=== PATIENT | male | born 1995 | race Caucasian/White ===

== ENCOUNTER 2019-09-02 07:45 | Outpatient (CLI) | payer BC ==
[2019-09-02 10:37] LABS: #Eosinphils 0.1 thou/uL (0.0-0.7); #Lymphocytes 1.7 thou/uL (1.20-3.40); #Monocytes 0.6 thou/uL (0.11-0.59); #Neutrophils 1.9 thou/uL (1.40-6.50); %Basophils 0.7 % (0.0-1.0); %Eosinophils 1.8 % (0.0-10.0); %Lymphocytes 39.7 % (21.0-51.0); %Monocytes 12.8 % (0.0-10.0); %Neutrophils 45.1 % (42.0-75.0); Hemoglobin 14.5 g/dL (14.0-18.0); Mean Corpuscular HGB CONC 33.6 g/dL (32.0-36.0); Mean Corpuscular Hemoglobin 29.6 pg (27.0-31.0); Mean Corpuscular Volume 88.2 fL (78.0-98.0); Mean Platelet Volume 8.5 fL (7.4-10.4); Platelet Count 200 thou/uL (130-400); RBC Distribution Width 11.8 % (11.5-14.5); Red Blood Cell (RBC) Count 4.91 mill/uL (4.70-6.10); White Blood Cell (WBC) Count 4.3 thou/uL (4.8-10.8)
== END 2019-09-02 07:46 | disposition home or self-care (01) ==
LOC: LABBT 07:45
PROVIDERS: ATTEND Surgery
DX: Z01.812 Encounter for preprocedural laboratory examination (principal); L05.91 Pilonidal cyst without abscess
CPT/HCPCS: 85025

== ENCOUNTER 2019-09-03 05:47 | Day surgery (SDC) | payer BC ==
[2019-09-02 08:48] VITALS: BMI 21.6
[2019-09-03] MEDS ORDERED: Midazolam HCl 2 mg/2 ml Vial ONE (06:42)
[2019-09-03] MEDS ORDERED: Fentanyl 100 MCG/2 ML VIAL ONE (06:42)
[2019-09-03] MEDS ORDERED: Bupivacaine PF 0.5% 30 ML VIAL ONE (07:54)
[2019-09-03] MEDS ORDERED: PROPOFOL 200 MG/20 ML VIAL ONE (10:02)
[2019-09-03] MEDS ORDERED: Ketorolac Tromethamine 30 MG/ML VIAL ONE (10:02)
[2019-09-03] MEDS ORDERED: Rocuronium Bromide 10 MG/ML (10ML VIAL) ONE (10:02)
[2019-09-03] MEDS ORDERED: Ondansetron PF 4 MG/2 ML Vial ONE (10:02)
[2019-09-03] MEDS ORDERED: Glycopyrrolate 0.2 MG/ML 5 ML SYRINGE ONE (10:02)
[2019-09-03] MEDS ORDERED: Lidocaine 1% PF 5 ML VIAL ONE (10:02)
--- NOTE | 2019-09-05 07:47 | OP ---
DATE OF PROCEDURE: 09/03/2019 PREOPERATIVE DIAGNOSIS: Pilonidal cyst. PROCEDURE PERFORMED: Pilonidal cystectomy. INDICATIONS: A 24-year-old male who had had multiple episodes of pilonidal cyst inflammation treated with antibiotics here for excision. FINDINGS: An 8 cm pilonidal cyst containing extensive amount of hair and a ventilatory sinus tract on the right side of the gluteal cleft. DESCRIPTION OF PROCEDURE: After informed consent was obtained, the patient was taken to the operating room, given general endotracheal anesthesia. He was placed in the prone gavin-knife position. His buttock cheeks were spread apart with tape. The area was prepped and draped in usual fashion. Local anesthesia infiltrated subcutaneously and deep with 0.5% Marcaine. An elliptical incision was performed, which was asymmetric taking more off the right side, then toward the midline to excise the entire cyst cavity. Hemostasis achieved with electrocautery. Then, the wound was thoroughly irrigated and a marsupialization was performed between the base of the cyst and the skin with interrupted 3-0 chromic suture. The wound was dressed with Xeroform gauze covered by fluffs covered by ciara pants. The patient tolerated the procedure well, transferred to Recovery in good condition. Sponge and needle count verified correct x2. Job ID: [id number]
== END 2019-09-03 09:45 | disposition home or self-care (01) ==
LOC: SDC 05:47
PROVIDERS: ATTEND Surgery
PROC: 0JB90ZZ Excision of Buttock Subcutaneous Tissue and Fascia, Open Approach (ICD-10-PCS; principal; 2019-09-03)
DX: L05.91 Pilonidal cyst without abscess (principal)
CPT/HCPCS: 88304; J0131; J0690; J1885; J2001; J2250; J2405; J2704; J3010; S0020